=== PATIENT | female | born 1990 | race American Indian/Alaskan Native ===

== ENCOUNTER 2018-10-24 12:04 | Observation (INO) | payer MEDICAID ==
[2018-10-24] MEDS ORDERED: LACTATED RINGERS 1,000 ML ONE (13:27)
[2018-10-24] MEDS: LACTATED RINGERS 1,000 ML IV SCH (14:03)
[2018-10-24 14:24] LABS: Hematocrit 33.1 % (30.3-42.9); Hemoglobin 10.6 gm/dl (10.1-14.3); Mean Corpuscular HGB Conc 32 % (30-34); Mean Corpuscular Volume 80 fl (79-97); Platelet Count 234 K/mm3 (140-440); Red Blood Count 4.14 M/mm3 (3.65-5.03); Red Cell Distribution Width 14.7 % (13.2-15.2)
[2018-10-24 14:46] LABS: Alanine Aminotransferase 10 units/L (7-56); Albumin 3.3 g/dL (3.9-5); BUN/Creatinine Ratio 13; Blood Urea Nitrogen 5 mg/dL (7-17); Calcium 8.6 mg/dL (8.4-10.2); Hemolysis Index 6
--- NOTE | 2018-10-24 17:03 | History and Physical Report ---
History of Present Illness Date of examination: 10/24/18 Date of admission: 10/24/18 12:04 Chief complaint: s/p fall History of present illness: Pt is a 28yo BF EDC 01/05/18; EGA 29 4/7 weeks presents for Observation per [facility] due to persistent tachycardia. She received care at [facility] and co-managed with [facility] for GDM - diet controlled. She denies contractions, ROM or bleeding. +FM Past History Past Medical History: diabetes (GDM) Past Surgical History: no surgical history Social history: no significant social history, - Obstetrical History Expected Date of Delivery: 01/05/19 Actual Gestation: 29 Week(s) 4 Day(s) : 3 Medications and Allergies Allergies Allergy/AdvReac Type Severity Reaction Status Date / Time No Known Allergies Allergy Verified 10/24/18 12:32 Active Meds: Active Medications Lactated Ringer's (Lactated Ringers) 1,000 mls @ 125 mls/hr IV DIRECT HARRIET Last Admin: 10/24/18 14:03 Dose: 125 mls/hr Documented by: Review of Systems All systems: negative - Vital Signs Vital signs: Vital Signs Temp Pulse Resp BP 97.1 F L 99 H 28 H 124/60 10/24/18 12:32 10/24/18 12:32 10/24/18 12:32 10/24/18 12:32 Temp Pulse Resp BP Pulse Ox 97.1 F L 100 H 28 H 124/60 99 10/24/18 12:32 10/24/18 16:57 10/24/18 12:32 10/24/18 12:32 10/24/18 16:57 - Physical Exam Breasts: Positive: deferred Abdomen: Positive: normal appearance, soft Uterus: Positive: enlarged Extremities: Positive: normal - Obstetrical FHR: category 1 Uterine Contraction Monitor Mode: External Results Result Diagrams: 10/24/18 13:54 10/24/18 13:54 Abnormal lab results 10/24/18 10/24/18 10/24/18 Range/Units 13:54 13:54 14:21 WBC 11.4 H (4.5-11.0) K/mm3 MCH 26 L (28-32) pg Sodium 135 L (137-145) mmol/L Potassium 3.5 L (3.6-5.0) mmol/L Carbon Dioxide 21 L (22-30) mmol/L BUN 5 L (7-17) mg/dL Creatinine 0.4 L (0.7-1.2) mg/dL Glucose 122 H (65-100) mg/dL POC Glucose 109 H (70-105) Total Protein 6.2 L (6.3-8.2) g/dL Albumin 3.3 L (3.9-5) g/dL All other labs normal. Ultrasound: report reviewed (Cephalic, NAOMI 19.55cm, BPP 8/8) Assessment and Plan - Patient Problems (1) 29 weeks gestation of Onset Date: 10/24/18 Current Visit: Yes Status: Acute Plan to address problem: A: IUP @ 29 4/7 weeks S/P fall tachycardia GDM - diet controlled P: Admit for Observation for IV hydration Obtain CBC, CMP, KB testing and blood sugar monitoring Repeat u/s with BPP tomorrow. (2) GDM (gestational diabetes mellitus) Onset Date: 10/24/18 Current Visit: Yes Status: Acute Qualifiers: Gestational diabetes mellitus control: diet-controlled Trimester: third trimester Qualified Code(s): O24.410 - Gestational diabetes mellitus in , diet controlled (3) Status post fall Onset Date: 10/24/18 Current Visit: Yes Status: Acute (4) tachycardia Onset Date: 10/24/18 Current Visit: Yes Status: Acute
[2018-10-24] MEDS ORDERED: ZOFRAN IV PRN (17:14)
[2018-10-24] MEDS ORDERED: TYLENOL PO PRN (17:14)
[2018-10-24] MEDS ORDERED: COLACE PO PRN (17:14)
[2018-10-24] MEDS ORDERED: D50W (25GM) Syringe IV PRN (17:17)
[2018-10-24] MEDS ORDERED: LACTATED RINGERS 1,000 ML IV SCH (18:00)
[2018-10-24] MEDS ORDERED: HumuLIN R SUB-Q SCH (22:00)
[2018-10-25] MEDS: LACTATED RINGERS 1,000 ML IV SCH (01:36)
[2018-10-25] MEDS ORDERED: PRENATAL VITAMIN PO SCH (10:00)
[2018-10-25 11:00] VITALS: BP 123/64
--- NOTE | 2018-10-25 11:35 | Ultrasound Report ---
ULTRASOUND OB BIOPHYSICAL PROFILE HISTORY: well being COMPARISON: None. TECHNIQUE: Transabdominal grayscale ultrasound with color Doppler. FINDINGS: heart rate: 1 77 bpm. BIOPHYSICAL PROFILE: Movement: 2 Tone: 2 Breathin Amniotic Fluid: 2 Total: 8 out of 8 IMPRESSION: Biophysical profile 11/23. Signer Name: Ken Stokes Jr, MD Signed: 10/25/2018 11:31 AM Workstation Name: [id number]
--- NOTE | 2018-10-25 11:43 | Discharge Summary ---
Providers - Providers Date of Admission: 10/24/18 12:04 Date of discharge: 10/25/18 Attending physician: ORA SAMPSON Primary care physician: ORA SAMPSON Hospitalization Reason for admission: IUP - , observation, other (IUP @ 29 4/7 weeks; tachycardia; s/p fall; GDM) Other procedures: none complications: none Discharge diagnosis: other (IUP @ 29 5/7 weeks; s/p fall; tachycardia - resolved; GDM) Pertinent studies: [facility] 11/23 Hospital course: Pt is a 28yo BF EDC 01/05/18; EGA 29 5/7 weeks presented for Observation per [facility] due to persistent tachycardia. She received care at [facility] and co-managed with [facility] for GDM - diet controlled. She denied contractions, ROM or bleeding. +FM She was monitored overnight without incident and resolution of tachycardia. [facility] 11/23. She will follow up in the office and with [facility] next week. Condition at discharge: Good Disposition: DC-01 TO HOME OR SELFCARE - Discharge Diagnoses (1) 29 weeks gestation of Status: Acute (2) GDM (gestational diabetes mellitus) Status: Chronic Qualifiers: Gestational diabetes mellitus control: diet-controlled Trimester: third trimester Qualified Code(s): O24.410 - Gestational diabetes mellitus in , diet controlled (3) Status post fall Status: Resolved (4) tachycardia Status: Resolved Plan - Provider Discharge Summary Activity: routine, no sex for 6 weeks, no heavy lifting 4 weeks, no strenuous exercise Diet: routine Instructions: routine Additional instructions: [] Smoking cessation referral if applicable(refer to patient education folder for contact #) [] Refer to [facility] Booklet Call your doctor immediately for: * Fever > 100.5 * Heavy vaginal bleeding ( >1 pad per hour) * Severe persistent headache * Shortness of breath * Reddened, hot, painful area to leg or breast * Drainage or odor from incision. * Keep incision clean and dry at all times and follow doctor's instructions regarding bathing/showering - Follow up plan Follow up: ORA SAMPSON MD [Primary Care Provider] - 7 Days PIOTR HOLLAND NP [Advanced Practice Nurse] - 7 Days Forms: [facility] Discharge Summary
--- NOTE | 2018-10-25 12:07 | Ultrasound Report ---
ULTRASOUND OB LIMITED HISTORY: well being TECHNIQUE: transabdominal ultrasound with color Doppler imaging. FINDINGS: A single intrauterine is identified in cephalic position. heart rate ranges from 166- 182 bpm. The placenta is anterior, grade 1, and free of the internal cervical os. NAOMI measures 16.4 c m. The cervix measures 4.0 cm. IMPRESSION: Viable, single intrauterine as described. No acute abnormality is detected. Signer Name: Ken Stokes Jr, MD Signed: 10/25/2018 12:03 PM Workstation Name: [id number]
== END 2018-10-25 11:40 | disposition home or self-care (01) ==
LOC: LD 12:04
PROVIDERS: ADMIT Obstetrics & Gynecology; ATTEND Obstetrics & Gynecology
DX: O36.8330 Maternal care for abnormalities of the fetal heart rate or rhythm, third trimester, not applicable or unspecified (principal); O24.419 Gestational diabetes mellitus in pregnancy, unspecified control; Z3A.29 29 weeks gestation of pregnancy; Z91.81 History of falling
CPT/HCPCS: 36415; 76815; 76819; 80053; 82962; 85027; 85460; G0378; G0379; J7120

== ENCOUNTER 2018-12-19 15:02 | Inpatient (IN) | payer MEDICAID ==
--- NOTE | 2018-12-19 17:09 | History and Physical Report ---
History of Present Illness Date of examination: 12/19/18 Date of admission: 12/19/18 15:02 Chief complaint: Induction of labor History of present illness: Pt is a 28yo BF EDC 01/05/19; EGA 37 4/7 weeks presents for induction of labor per [facility] due to PIH and GDM. She was seen in the office of [facility] and complained of headaches. BP was 146/91 and 136/81 She takes Glyburide 2.5mg BID for GDM. She received care at [facility] since 10 weeks and co-managed by [facility] for GDM. records are available and GBS is Positive. Past History Past Medical History: diabetes (GDM - on Glyburide) Past Surgical History: no surgical history Family/Genetic History: diabetes, hypertension Social history: no significant social history, - Obstetrical History Expected Date of Delivery: 01/05/19 Actual Gestation: 37 Week(s) 5 Day(s) : 3 Medications and Allergies Allergies Allergy/AdvReac Type Severity Reaction Status Date / Time No Known Allergies Allergy Verified 10/24/18 12:32 Home Medications Medication Instructions Recorded Confirmed Last Taken Type Vit-Fe Fumar-FA [ 1 tab PO QDAY 10/25/18 12/19/18 12/19/18 History Vitamin] Feosol 325 MG tab 325 mg Q24HR 12/19/18 12/19/18 12/19/18 History glyBURIDE [Diabeta] 2.5 mg Q24HR 12/19/18 12/19/18 12/19/18 History Review of Systems All systems: negative - Vital Signs Vital signs: Vital Signs Pulse BP 96 H 130/64 12/19/18 15:22 12/19/18 15:22 Temp Pulse Resp BP Pulse Ox 93 H 133/68 12/19/18 16:54 12/19/18 16:54 - Physical Exam Breasts: Positive: deferred Abdomen: Positive: normal appearance, soft Vagina: Positive: normal moisture Uterus: Positive: enlarged Extremities: Positive: normal - Obstetrical FHR: category 1 Uterine Contraction Monitor Mode: External Cervical Dilatation: 1 Cervical Effacement Percentage: 50 station: -3 Uterine Contraction Pattern: Absent Results Result Diagrams: 12/19/18 16:57 12/19/18 16:49 All other labs normal. Ultrasound: report reviewed (NAOMI 17.6; BPP 8/8) Assessment and Plan - Patient Problems (1) 37 weeks gestation of Onset Date: 12/19/18 Current Visit: Yes Status: Acute Plan to address problem: A: IUP @ 37 4/7 weeks GDM - on Glyburide PIH +GBS P: Admit to L&D for induction of labor per [facility] Accuchecks Obtain PIH labs IV Ampicillin when in labor (2) GBS (group B streptococcus) infection Onset Date: 12/19/18 Current Visit: Yes Status: Acute (3) GDM (gestational diabetes mellitus) Onset Date: 12/19/18 Current Visit: No Status: Chronic Qualifiers: Gestational diabetes mellitus control: oral hypoglycemic-controlled Trimester: third trimester Qualified Code(s): O24.415 - Gestational diabetes mellitus in , controlled by oral hypoglycemic drugs
[2018-12-19] MEDS ORDERED: ZOFRAN IV PRN (17:15)
[2018-12-19] MEDS ORDERED: SUBLIMAZE IV PRN (17:15)
[2018-12-19] MEDS ORDERED: BRETHINE IVP PRN (17:15)
[2018-12-19] MEDS ORDERED: AMPICILLIN/NS 2 GM/100 ML 2 GM/100 ML BAG IV ONE (17:15)
[2018-12-19] MEDS ORDERED: BRETHINE SUB-Q PRN (17:15)
[2018-12-19] MEDS ORDERED: XYLOCAINE 2% INFILTRATI ONE (17:15)
[2018-12-19] MEDS ORDERED: CERVIDIL VG ONE (17:15)
[2018-12-19 17:23] LABS: Hematocrit 40.5 % (30.3-42.9); Hemoglobin 13.1 gm/dl (10.1-14.3); Mean Corpuscular HGB Conc 32 % (30-34); Mean Corpuscular Volume 82 fl (79-97); Platelet Count 184 K/mm3 (140-440); Red Blood Count 4.92 M/mm3 (3.65-5.03)
[2018-12-19 17:27] LABS: Red Cell Distribution Width 21.7 % (13.2-15.2)
[2018-12-19 17:47] LABS: Alanine Aminotransferase 8 units/L (7-56); Uric Acid 3.1 mg/dL (3.5-7.6)
[2018-12-19] MEDS ORDERED: PITOCin/NS 20 UNIT/1000ML DRIP 20 UNITS/1,000 ML BAG IV SCH (18:00)
[2018-12-19] MEDS ORDERED: PITOCin/NS 30 UNIT/500ML 30 UNITS/500 ML BAG IV SCH (18:00)
[2018-12-19] MEDS: LACTATED RINGERS 1,000 ML IV SCH (18:57)
[2018-12-19] MEDS ORDERED: AMPICILLIN/NS 1 GM/50 ML 1 GM/50 ML BAG IV SCH (22:00)
[2018-12-19] MEDS ORDERED: MINERAL OIL PO PRN (22:00)
[2018-12-20] MEDS ORDERED: AMPICILLIN/NS 2 GM/100 ML 2 GM/100 ML BAG IV ONE
[2018-12-20] MEDS: STADOL IV PRN ×2 (01:18→05:17)
[2018-12-20] MEDS: AMPICILLIN/NS 1 GM/50 ML 1 GM/50 ML BAG IV SCH ×2 (04:00→10:06)
[2018-12-20] MEDS: PITOCin/NS 30 UNIT/500ML 30 UNITS/500 ML BAG IV SCH ×2 (04:59→06:28)
--- NOTE | 2018-12-20 08:55 | Progress Note ---
Assessment and Plan - Patient Problems (1) 37 weeks gestation of Onset Date: 12/19/18 Current Visit: Yes Status: Acute Plan to address problem: A: IUP @ 37 5/7 weeks GDM - on Glyburide PIH +GBS P: Continue with pitocin induction of labor Accuchecks IV Ampicillin Expectant vaginal delivery (2) GBS (group B streptococcus) infection Onset Date: 12/19/18 Current Visit: Yes Status: Acute (3) GDM (gestational diabetes mellitus) Onset Date: 12/19/18 Current Visit: No Status: Chronic Qualifiers: Gestational diabetes mellitus control: oral hypoglycemic-controlled Trimester: third trimester Qualified Code(s): O24.415 - Gestational diabetes mellitus in , controlled by oral hypoglycemic drugs Subjective - Subjective Date of service: 12/20/18 Principal diagnosis: IUP @ 37 5/7 weeks; PIH; GDM Interval history: Pt is a 28yo BF EDC 01/05/19; EGA 37 5/7 weeks who presented for induction of labor per [facility] due to PIH and GDM. She was seen in the office of [facility] and complained of headaches. BP was 146/91 and 136/81 She takes Glyburide 2.5mg BID for GDM. She received cervidil followed by low dose pitocin last night and currently niecy q 2-4 mins. Patient reports: movement normal, contractions, no new complaints, no loss of fluid, no vaginal bleeding Objective - Vital Signs Vital Signs: Vital Signs - 12hr 12/19/18 12/19/18 12/19/18 20:52 20:57 21:00 Temperature Pulse Rate 102 H 93 H Respiratory Rate Blood Pressure O2 Sat by Pulse 97 98 84 Oximetry 12/19/18 12/19/18 12/19/18 21:02 21:04 21:07 Temperature Pulse Rate 98 H 94 H 107 H Respiratory Rate Blood Pressure 120/75 O2 Sat by Pulse 98 98 Oximetry 12/19/18 12/19/18 12/19/18 21:12 21:17 21:22 Temperature Pulse Rate 58 L 93 H 97 H Respiratory Rate Blood Pressure O2 Sat by Pulse 92 99 97 Oximetry 12/19/18 12/19/18 12/19/18 21:27 21:32 21:35 Temperature Pulse Rate 95 H 92 H 95 H Respiratory Rate Blood Pressure 112/56 O2 Sat by Pulse 97 98 Oximetry 12/19/18 12/19/18 12/19/18 21:37 21:42 21:47 Temperature Pulse Rate 97 H 105 H 87 Respiratory Rate Blood Pressure O2 Sat by Pulse 97 99 98 Oximetry 12/19/18 12/19/18 12/19/18 21:48 21:52 21:57 Temperature Pulse Rate 91 H 94 H Respiratory Rate Blood Pressure O2 Sat by Pulse 86 98 99 Oximetry 12/19/18 12/19/18 12/19/18 22:02 22:04 22:07 Temperature Pulse Rate 94 H 95 H 96 H Respiratory Rate Blood Pressure 126/68 O2 Sat by Pulse 100 99 Oximetry 12/19/18 12/19/18 12/19/18 22:12 22:17 22:21 Temperature Pulse Rate 99 H 89 Respiratory Rate Blood Pressure O2 Sat by Pulse 99 83 L 91 Oximetry 12/19/18 12/19/18 12/19/18 22:25 22:30 22:33 Temperature Pulse Rate 107 H 94 H 96 H Respiratory Rate Blood Pressure 123/68 O2 Sat by Pulse 98 99 Oximetry 12/19/18 12/19/18 12/19/18 22:35 22:40 22:45 Temperature Pulse Rate 94 H 93 H 89 Respiratory Rate Blood Pressure O2 Sat by Pulse 98 98 98 Oximetry 12/19/18 12/19/18 12/19/18 22:50 22:55 23:00 Temperature Pulse Rate 89 90 93 H Respiratory Rate Blood Pressure O2 Sat by Pulse 98 98 98 Oximetry 12/19/18 12/19/18 12/19/18 23:05 23:10 23:15 Temperature Pulse Rate 98 H 95 H 98 H Respiratory Rate Blood Pressure 118/59 O2 Sat by Pulse 98 97 97 Oximetry 12/19/18 12/19/18 12/19/18 23:20 23:25 23:28 Temperature 98.1 F Pulse Rate 89 93 H Respiratory Rate Blood Pressure 101/55 O2 Sat by Pulse 98 95 Oximetry 12/19/18 12/19/18 12/19/18 23:30 23:33 23:35 Temperature Pulse Rate 88 89 94 H Respiratory Rate Blood Pressure 101/52 O2 Sat by Pulse 98 97 Oximetry 12/19/18 12/19/18 12/19/18 23:40 23:45 23:50 Temperature Pulse Rate 101 H 90 93 H Respiratory Rate Blood Pressure O2 Sat by Pulse 98 98 100 Oximetry 12/19/18 12/20/18 12/20/18 23:55 00:00 00:04 Temperature Pulse Rate 84 83 78 Respiratory Rate Blood Pressure 108/76 O2 Sat by Pulse 100 100 Oximetry 12/20/18 12/20/18 12/20/18 00:05 00:10 00:15 Temperature Pulse Rate 75 80 77 Respiratory Rate Blood Pressure O2 Sat by Pulse 100 100 100 Oximetry 12/20/18 12/20/18 12/20/18 00:20 00:25 00:30 Temperature Pulse Rate 79 90 84 Respiratory Rate Blood Pressure O2 Sat by Pulse 100 99 99 Oximetry 12/20/18 12/20/18 12/20/18 00:34 00:35 00:40 Temperature Pulse Rate 90 93 H 91 H Respiratory Rate Blood Pressure 133/63 O2 Sat by Pulse 99 100 Oximetry 12/20/18 12/20/18 12/20/18 00:45 00:51 00:56 Temperature Pulse Rate 107 H 107 H 106 H Respiratory Rate Blood Pressure O2 Sat by Pulse 99 99 98 Oximetry 12/20/18 12/20/18 12/20/18 00:58 01:05 01:06 Temperature Pulse Rate 94 H Respiratory Rate Blood Pressure O2 Sat by Pulse 86 82 L 82 L Oximetry 12/20/18 12/20/18 12/20/18 01:11 01:16 01:18 Temperature Pulse Rate 129 H 123 H Respiratory 18 Rate Blood Pressure O2 Sat by Pulse 98 98 Oximetry 12/20/18 12/20/18 12/20/18 01:21 01:23 01:26 Temperature Pulse Rate 125 H 115 H 118 H Respiratory Rate Blood Pressure 132/60 O2 Sat by Pulse 97 97 Oximetry 12/20/18 12/20/18 12/20/18 01:31 01:34 01:36 Temperature Pulse Rate 107 H 107 H 114 H Respiratory Rate Blood Pressure 123/58 O2 Sat by Pulse 97 97 Oximetry 12/20/18 12/20/18 12/20/18 01:41 01:46 01:51 Temperature Pulse Rate 116 H 117 H 113 H Respiratory Rate Blood Pressure O2 Sat by Pulse 95 96 96 Oximetry 12/20/18 12/20/18 12/20/18 01:57 02:02 02:04 Temperature Pulse Rate 108 H 117 H 129 H Respiratory Rate Blood Pressure 115/79 O2 Sat by Pulse 97 96 Oximetry 12/20/18 12/20/18 12/20/18 02:08 02:13 02:18 Temperature Pulse Rate 71 111 H 113 H Respiratory Rate Blood Pressure O2 Sat by Pulse 84 97 96 Oximetry 12/20/18 12/20/18 12/20/18 02:21 02:23 02:28 Temperature Pulse Rate 64 113 H 112 H Respiratory Rate Blood Pressure O2 Sat by Pulse 94 96 97 Oximetry 12/20/18 12/20/18 12/20/18 02:33 02:35 02:38 Temperature Pulse Rate 109 H 112 H 113 H Respiratory Rate Blood Pressure 123/59 O2 Sat by Pulse 97 97 Oximetry 12/20/18 12/20/18 12/20/18 02:43 02:48 02:53 Temperature Pulse Rate 115 H 114 H 121 H Respiratory Rate Blood Pressure O2 Sat by Pulse 96 96 97 Oximetry 12/20/18 12/20/18 12/20/18 02:58 03:03 03:04 Temperature Pulse Rate 105 H 114 H 108 H Respiratory Rate Blood Pressure 119/58 O2 Sat by Pulse 96 97 Oximetry 12/20/18 12/20/18 12/20/18 03:08 03:13 03:18 Temperature Pulse Rate 113 H 109 H 113 H Respiratory Rate Blood Pressure O2 Sat by Pulse 96 96 97 Oximetry 12/20/18 12/20/18 12/20/18 03:23 03:28 03:33 Temperature Pulse Rate 115 H 116 H 117 H Respiratory Rate Blood Pressure O2 Sat by Pulse 97 96 97 Oximetry 12/20/18 12/20/18 12/20/18 03:34 03:38 03:43 Temperature Pulse Rate 114 H 102 H 109 H Respiratory Rate Blood Pressure 114/58 O2 Sat by Pulse 98 97 Oximetry 12/20/18 12/20/18 12/20/18 03:48 03:53 03:58 Temperature Pulse Rate 99 H 107 H 107 H Respiratory Rate Blood Pressure O2 Sat by Pulse 97 98 98 Oximetry 12/20/18 12/20/18 12/20/18 04:02 04:12 04:23 Temperature Pulse Rate 25 L 54 L Respiratory Rate Blood Pressure O2 Sat by Pulse 84 85 90 Oximetry 12/20/18 12/20/18 12/20/18 04:35 04:39 04:42 Temperature Pulse Rate 69 100 H 94 H Respiratory Rate Blood Pressure 121/64 O2 Sat by Pulse 0 L 99 Oximetry 12/20/18 12/20/18 12/20/18 04:44 04:49 04:54 Temperature Pulse Rate 108 H 107 H 101 H Respiratory Rate Blood Pressure O2 Sat by Pulse 99 99 99 Oximetry 12/20/18 12/20/18 12/20/18 04:59 05:03 05:04 Temperature Pulse Rate 102 H 95 H 104 H Respiratory Rate Blood Pressure 119/63 O2 Sat by Pulse 99 99 Oximetry 12/20/18 12/20/18 12/20/18 05:09 05:14 05:19 Temperature Pulse Rate 100 H 89 96 H Respiratory Rate Blood Pressure O2 Sat by Pulse 99 99 98 Oximetry 12/20/18 12/20/18 12/20/18 05:24 05:29 05:34 Temperature Pulse Rate 90 83 92 H Respiratory Rate Blood Pressure 110/56 O2 Sat by Pulse 98 97 96 Oximetry 12/20/18 12/20/18 12/20/18 05:39 05:44 05:49 Temperature Pulse Rate 83 86 85 Respiratory Rate Blood Pressure O2 Sat by Pulse 97 96 96 Oximetry 12/20/18 12/20/18 12/20/18 05:54 05:59 06:03 Temperature Pulse Rate 99 H 83 86 Respiratory Rate Blood Pressure 105/58 O2 Sat by Pulse 97 97 Oximetry 12/20/18 12/20/18 12/20/18 06:04 06:09 06:14 Temperature Pulse Rate 84 93 H 89 Respiratory Rate Blood Pressure O2 Sat by Pulse 96 96 96 Oximetry 12/20/18 12/20/18 12/20/18 06:19 06:24 06:29 Temperature Pulse Rate 87 83 95 H Respiratory Rate Blood Pressure O2 Sat by Pulse 97 98 97 Oximetry 12/20/18 12/20/18 12/20/18 06:33 06:34 06:39 Temperature Pulse Rate 75 84 78 Respiratory Rate Blood Pressure 116/59 O2 Sat by Pulse 98 98 Oximetry 12/20/18 12/20/18 12/20/18 06:44 06:49 06:50 Temperature Pulse Rate 82 74 Respiratory Rate Blood Pressure O2 Sat by Pulse 98 83 L 85 Oximetry 12/20/18 12/20/18 12/20/18 06:55 06:57 07:10 Temperature Pulse Rate 41 L Respiratory Rate Blood Pressure O2 Sat by Pulse 89 90 88 Oximetry 12/20/18 12/20/18 07:11 07:35 Temperature Pulse Rate 77 77 Respiratory Rate Blood Pressure 121/69 118/70 O2 Sat by Pulse Oximetry - Exam Abdomen: Present: normal appearance, soft Uterus: Present: normal FHR: category 1 Uterine Contraction Monitor Mode: External Cervical Dilatation: 4 Cervical Effacement Percentage: 70 station: -2 Uterine Contraction Pattern: Regular Uterine Tone Measurement Phase: Contraction Uterine Contraction Intensity: Moderate - Labs Labs: Abnormal Labs 12/19/18 12/19/18 16:49 16:57 MCH 27 L RDW 21.7 H Creatinine 0.4 L Uric Acid 3.1 L Lactate Dehydrogenase 191 H Laboratory Results - last 24 hr 12/19/18 12/19/18 12/19/18 16:49 16:49 16:57 WBC 9.9 RBC 4.92 Hgb 13.1 Hct 40.5 MCV 82 MCH 27 L MCHC 32 RDW 21.7 H Plt Count 184 Creatinine 0.4 L Estimated GFR > 60 POC Glucose Uric Acid 3.1 L AST 14 ALT 8 Lactate Dehydrogenase 191 H Blood Type B POSITIVE Antibody Screen Negative 12/20/18 06:33 WBC RBC Hgb Hct MCV MCH MCHC RDW Plt Count Creatinine Estimated GFR POC Glucose 81 Uric Acid AST ALT Lactate Dehydrogenase Blood Type Antibody Screen
[2018-12-20] MEDS: DIABETA PO SCH ×2 (10:42→18:20)
[2018-12-20] MEDS: LACTATED RINGERS 1,000 ML IV SCH ×2 (11:39→15:01)
[2018-12-20] MEDS ORDERED: NARCAN 2 MG/2 ML IV PRN (15:14)
--- NOTE | 2018-12-20 15:16 | Anesthesia Consultation ---
Anesthesia Consult and Med Hx Date of service: 12/20/18 - Airway Anesthetic Teeth Evaluation: Good ROM Head & Neck: Adequate Mental/Hyoid Distance: Adequate Mallampati Class: Class II Intubation Access Assessment: Probably Good - Pulmonary Exam CTA: Yes - Cardiac Exam Cardiac Exam: RRR - Pre-Operative Health Status ASA Pre-Surgery Classification: ASA2 Proposed Anesthetic Plan: Epidural - Pulmonary Hx Asthma: No COPD: No Hx Pneumonia: No - Cardiovascular System Hx Hypertension: No - Central Nervous System Hx Seizures: No Hx Psychiatric Problems: No - Endocrine Hx Renal Disease: No Hx End Stage Renal Disease: No Hx Non-Insulin Dependent Diabetes: Yes (gestational) Hx Hypothyroidism: No Hx Hyperthyroidism: No - Hematic Hx Anemia: No Hx Sickle Cell Disease: No - Other Systems Hx Alcohol Use: No
[2018-12-20] MEDS ORDERED: fentaNYL-BUPIV 2 MCG/ML-0.125% 200 MCG/100 ML BAG EPIDURAL SCH (16:00)
--- NOTE | 2018-12-20 18:08 | Procedure Note ---
OB Delivery Note - Delivery Date of Delivery: 12/20/18 Surgeon: ORA SAMPSON Estimated blood loss: <100cc - Vaginal Delivery presentation: vertex Delivery position: OA Intrapartum events: PROM->1hr before delivery, gestational hypertension Delivery induction: cervidil Delivery augmentation: rupture of membranes, pitocin Delivery monitor: external FHT, external uterine Route of delivery: Delivery placenta: spontaneous Delivery cord: nuchal cord, 3 umbilical vessels Episiotomy: none Delivery laceration: none Anesthesia: epidural Delivery comments: delivered OA and placed on Mom's chest for [id number] bonding and delayed cord clamping, cut by Dad - Infant A at 1 minute: 8 at 5 minutes: 9 Infant Gender: Female ([id number])
[2018-12-20] MEDS ORDERED: PHENERGAN PO PRN (18:09)
[2018-12-20] MEDS ORDERED: MILK OF MAGNESIA PO PRN (18:09)
[2018-12-20] MEDS ORDERED: LANSINOH TP PRN (18:09)
[2018-12-20] MEDS ORDERED: TUCKS PAD TP PRN (18:09)
[2018-12-20] MEDS ORDERED: ZOFRAN IV PRN (18:09)
[2018-12-20] MEDS ORDERED: BENADRYL PO PRN (18:09)
[2018-12-20] MEDS ORDERED: DULCOLAX PR PRN (18:09)
[2018-12-20] MEDS ORDERED: TYLENOL PO PRN (18:09)
[2018-12-20] MEDS ORDERED: PHENERGAN PR PRN (18:09)
[2018-12-20] MEDS ORDERED: PITOCin/NS 20 UNIT/1000ML DRIP 20 UNITS/1,000 ML BAG IV SCH (19:00)
[2018-12-20] MEDS ORDERED: SODIUM CHLORIDE FLUSH SYRINGE 10 ML IV NR (19:00)
[2018-12-20] MEDS: NORCO 5/325 PO PRN (20:15)
[2018-12-20] MEDS: SENOKOT S PO SCH (20:16)
[2018-12-20] MEDS: IBUPROFEN PO SCH (20:16)
[2018-12-20] MEDS: FEOSOL PO SCH (23:05)
[2018-12-21] MEDS: NORCO 5/325 PO PRN (04:32)
[2018-12-21] MEDS: IBUPROFEN PO SCH ×4 (04:33→23:34)
[2018-12-21] MEDS ORDERED: BOOSTRIX IM ONE (06:00)
[2018-12-21 06:39] LABS: Hematocrit 35.4 % (30.3-42.9); Hemoglobin 11.5 gm/dl (10.1-14.3)
--- NOTE | 2018-12-21 09:23 | Progress Note ---
Assessment and Plan - Patient Problems (1) 37 weeks gestation of Onset Date: 12/19/18 Current Visit: Yes Status: Resolved (2) GBS (group B streptococcus) infection Onset Date: 12/19/18 Current Visit: Yes Status: Resolved (3) GDM (gestational diabetes mellitus) Onset Date: 12/19/18 Current Visit: No Status: Resolved Qualifiers: Gestational diabetes mellitus control: oral hypoglycemic-controlled Trimester: third trimester Qualified Code(s): O24.415 - Gestational diabetes mellitus in , controlled by oral hypoglycemic drugs (4) (normal spontaneous vaginal delivery) Onset Date: 12/21/18 Current Visit: Yes Status: Resolved Plan to address problem: A: S/P - PPD #1 Doing well Asymptomatic anemia - stable P: May go home tomorrow. Subjective - Subjective Date of service: 12/21/18 Principal diagnosis: s/p - PPD #1 Interval history: Pt is feeling well without complaints. Bleeding improved. Patient reports: appetite normal, voiding normally, pain well controlled, flatus, ambulating normally, no dizzy ambulation, no nauseated : doing well, nursing well, bottle feeding Objective - Vital Signs Latest vital signs: Vital Signs Temp Pulse Resp BP BP Pulse Ox 12/21/18 07:52 98.6 F 79 20 108/64 98 12/21/18 06:30 98.3 F 89 18 116/71 99 12/21/18 05:33 18 12/21/18 05:32 18 12/21/18 04:33 18 12/21/18 04:32 18 12/21/18 00:07 98.6 F 86 20 109/56 99 12/20/18 21:16 18 12/20/18 21:15 18 12/20/18 20:16 18 12/20/18 20:15 18 12/20/18 20:00 98.6 F 80 18 127/63 12/20/18 19:08 67 132/68 12/20/18 18:53 75 129/64 12/20/18 18:38 82 124/61 12/20/18 18:32 96 H 134/66 12/20/18 18:31 97 H 99 12/20/18 18:24 78 0 L 12/20/18 18:18 87 12/20/18 18:12 92 H 135/63 12/20/18 18:08 101 H 183/82 89 12/20/18 18:03 88 85 12/20/18 17:58 93 H 91 12/20/18 17:51 88 12/20/18 17:45 50 L 85 12/20/18 17:43 96 H 100 12/20/18 17:38 82 125/63 100 12/20/18 17:33 88 99 12/20/18 17:28 92 H 99 12/20/18 17:24 81 131/66 12/20/18 17:23 88 100 12/20/18 17:18 102 H 99 12/20/18 17:13 103 H 98 12/20/18 17:10 89 125/62 12/20/18 17:08 95 H 98 12/20/18 17:03 86 99 12/20/18 16:58 84 98 12/20/18 16:54 78 122/57 12/20/18 16:53 86 97 12/20/18 16:48 91 H 98 12/20/18 16:43 86 97 12/20/18 16:38 82 125/56 98 12/20/18 16:33 79 97 12/20/18 16:28 87 98 12/20/18 16:23 77 118/55 98 12/20/18 16:18 80 98 12/20/18 16:13 88 98 12/20/18 16:09 86 130/64 12/20/18 16:08 86 98 12/20/18 16:03 85 98 12/20/18 15:58 82 98 12/20/18 15:55 84 110/59 12/20/18 15:53 85 109/53 99 12/20/18 15:48 90 98 12/20/18 15:43 95 H 98 12/20/18 15:38 85 99 12/20/18 15:37 87 122/59 12/20/18 15:35 80 116/56 12/20/18 15:33 86 117/61 100 12/20/18 15:31 88 123/61 12/20/18 15:29 82 122/57 12/20/18 15:28 85 100 12/20/18 15:27 83 119/58 12/20/18 15:25 80 124/60 12/20/18 15:23 80 121/60 99 12/20/18 15:21 86 123/59 12/20/18 15:19 82 117/58 12/20/18 15:18 76 99 12/20/18 15:17 88 120/59 12/20/18 15:15 76 118/58 12/20/18 15:13 75 113/58 99 12/20/18 15:11 79 117/59 12/20/18 15:09 84 125/65 12/20/18 15:08 79 99 12/20/18 15:07 97 H 116/60 12/20/18 15:05 94 H 127/69 12/20/18 15:03 89 135/73 100 12/20/18 14:58 87 100 12/20/18 14:54 97.3 F L 93 H 18 132/73 132/73 100 12/20/18 14:53 92 H 100 12/20/18 14:52 81 0 L 12/20/18 14:34 81 109/54 12/20/18 14:03 92 H 117/62 12/20/18 13:33 96 H 133/63 12/20/18 13:07 90 119/60 12/20/18 12:43 97.6 F 96 H 18 130/60 12/20/18 11:03 75 116/72 12/20/18 10:35 73 115/63 12/20/18 10:07 71 121/68 Intake and Output 12/20/18 12/21/18 12/21/18 22:59 06:59 14:59 Intake Total 660.833 Output Total 300 300 Balance 360.833 -300 Intake: IV 420.833 Lactated Ringers 1,000 ml 420.833 @ 125 mls/hr IV DIRECT [facility] Rx#:[id number] Intake, Free Water 240 Output: Urine 300 300 Void 300 300 Other: Total, Output Amount 300 200 Estimated Blood Loss 100 - Exam Breasts: Present: deferred Abdomen: Present: normal appearance, soft Uterus: Present: normal, firm, fundal height below umbilicus Extremities: Present: normal - Labs Labs: Abnormal lab results 12/20/18 Range/Units 22:13 POC Glucose 56 L (70-105) Laboratory Tests 12/19/18 12/19/18 12/19/18 16:49 16:49 16:57 WBC 9.9 RBC 4.92 Hgb 13.1 Hct 40.5 MCV 82 MCH 27 L MCHC 32 RDW 21.7 H Plt Count 184 Creatinine 0.4 L Estimated GFR > 60 POC Glucose Uric Acid 3.1 L AST 14 ALT 8 Lactate Dehydrogenase 191 H RPR Blood Type B POSITIVE Antibody Screen Negative 12/19/18 12/20/18 12/20/18 16:58 06:33 10:08 WBC RBC Hgb Hct MCV MCH MCHC RDW Plt Count Creatinine Estimated GFR POC Glucose 81 87 Uric Acid AST ALT Lactate Dehydrogenase RPR Nonreactive Blood Type Antibody Screen 12/20/18 12/20/18 12/21/18 17:43 22:13 05:37 WBC RBC Hgb 11.5 Hct 35.4 MCV MCH MCHC RDW Plt Count Creatinine Estimated GFR POC Glucose 81 56 L Uric Acid AST ALT Lactate Dehydrogenase RPR Blood Type Antibody Screen
[2018-12-21] MEDS: SENOKOT S PO SCH ×2 (11:15→19:00)
[2018-12-21] MEDS: PRENATAL VITAMIN PO SCH (11:15)
[2018-12-21] MEDS: FEOSOL PO SCH ×2 (11:15→23:34)
--- NOTE | 2018-12-21 11:30 | Discharge Summary ---
Providers - Providers Date of Admission: 12/19/18 15:02 Date of discharge: 12/22/18 Attending physician: ORA SAMPSON Primary care physician: ORA SAMPSON Hospitalization Reason for admission: induction of labor, IUP at term, other (PIH; GDM) Delivery: Episiotomy: none Laceration: none Other procedures: none complications: none Discharge diagnosis: IUP at term delivered [place] baby: female Hospital course: Unremarkable. Condition at discharge: Good Disposition: DC-01 TO HOME OR SELFCARE - Discharge Diagnoses (1) 37 weeks gestation of Status: Resolved (2) GBS (group B streptococcus) infection Status: Resolved (3) GDM (gestational diabetes mellitus) Status: Resolved Qualifiers: Gestational diabetes mellitus control: oral hypoglycemic-controlled Trimester: third trimester Qualified Code(s): O24.415 - Gestational diabetes mellitus in , controlled by oral hypoglycemic drugs (4) (normal spontaneous vaginal delivery) Status: Resolved Plan - Discharge Medications Prescriptions: Ferrous Sulfate [Feosol 325 MG tab] 325 mg PO BID #60 tablet Ibuprofen [Motrin 600 MG tab] 600 mg PO Q6H #30 tablet Vit-Fe Fumar-FA [ Vitamin] 1 each PO QDAY #30 tablet - Provider Discharge Summary Activity: routine, no sex for 6 weeks, no heavy lifting 4 weeks, no strenuous exercise Diet: routine Instructions: routine Additional instructions: [] Smoking cessation referral if applicable(refer to patient education folder for contact #) [] Refer to [facility]'s [facility] Booklet Call your doctor immediately for: * Fever > 100.5 * Heavy vaginal bleeding ( >1 pad per hour) * Severe persistent headache * Shortness of breath * Reddened, hot, painful area to leg or breast * Drainage or odor from incision. * Keep incision clean and dry at all times and follow doctor's instructions regarding bathing/showering - Follow up plan Follow up: ORA SAMPSON MD [Primary Care Provider] - 6 Weeks CARYL ROSE NP [Referring] - 6 Weeks
[2018-12-21] MEDS ORDERED: M-M-R II VACCINE SUB-Q ONE (18:09)
[2018-12-21] MEDS: COLACE PO SCH (23:34)
[2018-12-22] MEDS: IBUPROFEN PO SCH ×2 (05:47→12:41)
[2018-12-22 10:43] VITALS: BP 121/82
[2018-12-22] MEDS: COLACE PO SCH (12:42)
[2018-12-22] MEDS: FEOSOL PO SCH (12:43)
[2018-12-22] MEDS: PRENATAL VITAMIN PO SCH (12:43)
== END 2018-12-22 19:00 | disposition home or self-care (01) | DRG 774 ==
LOC: LD 15:02 → OB 12-20 19:49
PROVIDERS: ADMIT Obstetrics & Gynecology; ATTEND Obstetrics & Gynecology
PROC: 10E0XZZ Delivery of Products of Conception, External Approach (ICD-10-PCS; principal; 2018-12-20)
PROC: 3E0P7VZ Introduction of Hormone into Female Reproductive, Via Natural or Artificial Opening (ICD-10-PCS; 2018-12-20)
PROC: 3E0R3BZ Introduction of Anesthetic Agent into Spinal Canal, Percutaneous Approach (ICD-10-PCS; 2018-12-20)
PROC: 00HU33Z Insertion of Infusion Device into Spinal Canal, Percutaneous Approach (ICD-10-PCS; 2018-12-20)
PROC: 3E0234Z Introduction of Serum, Toxoid and Vaccine into Muscle, Percutaneous Approach (ICD-10-PCS; 2018-12-21)
DX: O98.82 Other maternal infectious and parasitic diseases complicating childbirth (principal); O24.429 Gestational diabetes mellitus in childbirth, unspecified control; B95.1 Streptococcus, group B, as the cause of diseases classified elsewhere; O99.02 Anemia complicating childbirth; D64.9 Anemia, unspecified; O13.4 Gestational [pregnancy-induced] hypertension without significant proteinuria, complicating childbirth; O42.02 Full-term premature rupture of membranes, onset of labor within 24 hours of rupture; O69.81X0 Labor and delivery complicated by cord around neck, without compression, not applicable or unspecified; Z23 Encounter for immunization; Z3A.37 37 weeks gestation of pregnancy; Z37.0 Single live birth; Z83.3 Family history of diabetes mellitus; Z82.49 Family history of ischemic heart disease and other diseases of the circulatory system; Z79.899 Other long term (current) drug therapy
CPT/HCPCS: 36415; 59200; 82565; 82962; 83615; 84450; 84460; 84550; 85014; 85018; 85027; 86592; 86850; 86900; 86901; 90471; 90715; G0378; J0290; J0595; J2590; J3105; J7120